=== PATIENT | female | born 1990 | race African-American/Black ===

== ENCOUNTER 2018-04-13 16:41 | Emergency (ER) | payer OTHER ==
[~2018-04-13] VITALS: Ht 160 cm; Wt 59.0 kg
[~2018-04-13 16:41] MED LIST: IBUPROFEN 600600 M1 PO; NORFLEX100 MG PO; PRILOSEC 20 MG20 MG PO; XANAX1 MG PO
[2018-04-13] MEDS ORDERED: ULTRAM 50MG TAB50 MG PO (18:59)
[2018-04-13] MEDS ORDERED: ONDANSETRON HCL4 M2 PO (18:59)
[2018-04-13 19:20] VITALS: BP 111/59
== END 2018-04-13 19:22 | disposition home or self-care (01) ==
LOC: ER 16:41
DX: S05.11XA Contusion of eyeball and orbital tissues, right eye, initial encounter (principal); S09.90XA Unspecified injury of head, initial encounter; M54.6 Pain in thoracic spine; Y04.8XXA Assault by other bodily force, initial encounter; Y93.89 Activity, other specified; Y92.89 Other specified places as the place of occurrence of the external cause; Y99.8 Other external cause status

== ENCOUNTER 2018-08-30 11:10 | Emergency (ER) | payer OTHER ==
[~2018-08-30] VITALS: Ht 167.6 cm; Wt 74.8 kg
[~2018-08-30 11:10] MED LIST changes: +ONDANSETRON HCL4 M2 PO; +ULTRAM 50MG TAB50 MG PO
[2018-08-30 11:32] LABS: URINE BILIRUBIN NEGATIVE (Negative); URINE BLOOD NEGATIVE (Negative); URINE CLARITY CLEAR; URINE COLOR YELLOW; URINE GLUCOSE-RANDOM* NEGATIVE (Negative); URINE KETONES NEGATIVE (Negative); URINE LEUKOCYTES NEGATIVE (Negative); URINE NITRITE NEGATIVE (Negative); URINE PROTEIN (DIPSTICK) NEGATIVE (Negative); URINE UROBILINOGEN 0.2 E.U./dl (0.2-1.0)
[2018-08-30 12:05] LABS: ABSOLUTE NEUTROPHILS 8.9 thou/uL (1.4-8.2); BASOPHILS 0.5 % (0.0-2.0); EOSINOPHILS 0.3 % (0.0-3.0); HEMATOCRIT 36.4 % (37.0-47.0); HEMOGLOBIN 12.4 gm/dL (12.0-15.0); MCH 30.1 pg (26.0-34.0); MCHC 33.9 g/dL (28.0-37.0); MCV 88.6 fL (80.0-100.0); MONOCYTES 3.6 % (1.0-8.0); PLATELET COUNT 221 thou/uL (150-400); POLYS 77.6 % (36.0-66.0); RBC 4.11 mil/uL (4.20-5.00); WBC 11.5 thou/uL (4.0-11.0)
[2018-08-30 12:13] LABS: CALCIUM 8.9 mg/dL (8.5-10.1); CREATININE 0.7 mg/dL (0.6-1.0); POTASSIUM 4.1 mmol/L (3.5-5.1)
[2018-08-30 12:19] LABS: ALBUMIN 4.4 g/dL (3.4-5.0); TOTAL BILIRUBIN 0.6 mg/dL (<0.1-1.0); TOTAL PROTEIN 8.3 g/dL (6.4-8.2)
[2018-08-30] MEDS ORDERED: ONDANSETRON HCL4 M2 PO (14:19)
[2018-08-30] MEDS ORDERED: PRILOSEC 20 MG20 MG PO (14:19)
[2018-08-30 14:30] VITALS: BP 124/58
== END 2018-08-30 14:44 | disposition home or self-care (01) ==
LOC: ER 11:10
PROVIDERS: Emergency Medicine; Physician Assistant
DX: K21.9 Gastro-esophageal reflux disease without esophagitis (principal); R11.2 Nausea with vomiting, unspecified; F41.9 Anxiety disorder, unspecified; K58.9 Irritable bowel syndrome, unspecified; Z88.2 Allergy status to sulfonamides

== ENCOUNTER 2018-11-29 11:28 | Inpatient (IN) | payer OTHER ==
[~2018-11-29] VITALS: Ht 162.6 cm; Wt 63.5 kg
[2018-11-29 11:29] VITALS: BP 116/80
[2018-11-29 12:35] LABS: ABSOLUTE NEUTROPHILS 10.5 thou/uL (1.4-8.2); BASOPHILS 0.1 % (0.0-2.0); EOSINOPHILS 0.7 % (0.0-3.0); HEMATOCRIT 40.9 % (37.0-47.0); HEMOGLOBIN 13.3 gm/dL (12.0-15.0); MCHC 32.6 g/dL (28.0-37.0); MONOCYTES 4.6 % (1.0-8.0); POLYS 83.6 % (36.0-66.0); RBC 4.45 mil/uL (4.20-5.00); RDW 13.9 % (10.5-14.5); WBC 12.6 thou/uL (4.0-11.0)
[2018-11-29 12:50] LABS: ALBUMIN 4.6 g/dL (3.4-5.0); CALCIUM 9.4 mg/dL (8.5-10.1); CREATININE 0.8 mg/dL (0.6-1.0); POTASSIUM 3.6 mmol/L (3.5-5.1); TOTAL BILIRUBIN 0.2 mg/dL (<0.1-1.0); TOTAL PROTEIN 8.7 g/dL (6.4-8.2)
[2018-11-29 14:15] LABS: PLATELET COUNT 151 thou/uL (150-400)
[2018-11-29 17:23] LABS: URINE BILIRUBIN NEGATIVE (Negative); URINE BLOOD NEGATIVE (Negative); URINE CLARITY CLEAR; URINE COLOR YELLOW; URINE GLUCOSE-RANDOM* NEGATIVE (Negative); URINE KETONES 2+ (Negative); URINE LEUKOCYTES-REFLEX NEGATIVE (Negative); URINE NITRITE-REFLEX NEGATIVE (Negative); URINE PROTEIN (DIPSTICK) TRACE (Negative); URINE UROBILINOGEN 0.2 E.U./dl (0.2-1.0)
[2018-11-29 17:30] LABS: AMP/METHAMP Negative (Negative); BARBITURATES Negative (Negative); BENZODIAZEPINES POSITIVE (Negative); COCAINE Negative (Negative); METHADONE Negative (Negative); OPIATES Negative (Negative); PCP Negative (Negative)
[2018-11-29 18:49] VITALS: BP 142/56
[2018-11-29 21:13] VITALS: BP 122/75
[2018-11-30 03:08] VITALS: BP 156/92
[2018-11-30 05:10] LABS: HEMATOCRIT 35.7 % (37.0-47.0); HEMOGLOBIN 11.7 gm/dL (12.0-15.0); MCHC 32.7 g/dL (28.0-37.0); MCV 91.7 fL (80.0-100.0); RBC 3.89 mil/uL (4.20-5.00); RDW 14.1 % (10.5-14.5); WBC 6.9 thou/uL (4.0-11.0)
[2018-11-30 05:19] LABS: CALCIUM 8.7 mg/dL (8.5-10.1); CREATININE 0.8 mg/dL (0.6-1.0); POTASSIUM 3.5 mmol/L (3.5-5.1)
[2018-11-30 07:11] VITALS: BP 122/80
[2018-11-30 15:10] VITALS: BP 142/72
[2018-11-30 20:40] VITALS: BP 123/85
[2018-12-01 05:59] VITALS: BP 122/79
[2018-12-01 07:42] VITALS: BP 130/88
[2018-12-01 14:16] VITALS: BP 130/88
--- NOTE | 2018-12-02 17:06 | PATH ---
[facility] [address] [place] [address] PATHOLOGY RPT PROCEDURE Name: ERIC SPENCE Room #: 418-P DIS IN M.R.#: [id number] ������������������ Admission: 11/29/18 ������������������ Date of : 89 Discharge: 12/01/18 Report #: [id number] Path Case #: [id number] [facility] Accession Number: [id number] . 01 Material submitted: . stomach - BX GASTRITIS R/O H-PYLORI . 01 Clinical history: . Pre-OP DX: Nausea with vomiting, abdominal pain Post-OP DX: Mild gastritis, mild duodenitis . 02 Diagnosis: Gastric mucosa, gastritis rule out H. pylori, endoscopic biopsy; - Mild reactive gastropathy. - Negative for intestinal metaplasia or atrophy. - Negative for Helicobacter pylori (properly controlled immunohistochemical stain performed). (IUV:charla; 12/02/2018) MBEloise/12/02/2018 . 02 Electronically signed: . Francisca Dougherty MD, Pathologist NPI- [id number] . 01 Gross description: . Received in formalin labeled "Eric Spence, BX gastritis, rule out H. pylori," are 2 segments of gallegos soft tissue measuring 0.8 x 0.2 x 0.2 cm in aggregate dimensions and measuring 0.4 cm each in maximum dimension. The specimen is submitted entirely in cassette A1. (TSD; 12/01/2018) TOB/TOB . 02 Pathologist provided ICD-10: K31.9 . 02 CPT . 006847, T23871 Specimen Comment: A courtesy copy of this report has been sent to Specimen Comment: [phone]. Specimen Comment: Report sent to ,DR SOLIS / DR WATT Performed at: [address] [id number] MD Adrian Jorgensen MD Phone: [phone] Performed at: [address] [id number] [address] [address] PATHOLOGY RPT PROCEDURE Name: ERIC SPENCE Room #: 418-P DIS IN M.R.#: [id number] ������������������ Admission: 11/29/18 ������������������ Date of : [birth year] Discharge: 12/01/18 Report #: [id number] Path Case #: [id number] MD Francisca Dougherty MD Phone: [phone]
== END 2018-12-01 15:10 | disposition home or self-care (01) | DRG 392 ==
LOC: ER 11:28 → EROBS 17:05 → 4E 17:05 → 4S 20:32 → 4E 20:42 → ENTRNSPT 12-01 14:34 → EDTRNSPTSTS 12-01 14:42 → 4E 12-01 15:10
PROVIDERS: Obstetrics & Gynecology; Physician Assistant; ADMIT Internal Medicine
PROC: 05HY33Z Insertion of Infusion Device into Upper Vein, Percutaneous Approach (ICD-10-PCS; 2018-11-30)
PROC: 0DB68ZX Excision of Stomach, Via Natural or Artificial Opening Endoscopic, Diagnostic (ICD-10-PCS; principal; 2018-12-01)
DX: K29.70 Gastritis, unspecified, without bleeding (principal); K21.9 Gastro-esophageal reflux disease without esophagitis; N80.9 Endometriosis, unspecified; F41.9 Anxiety disorder, unspecified; Z88.2 Allergy status to sulfonamides; E86.0 Dehydration; N83.209 Unspecified ovarian cyst, unspecified side; F19.10 Other psychoactive substance abuse, uncomplicated; Z90.6 Acquired absence of other parts of urinary tract; Z79.899 Other long term (current) drug therapy
CPT/HCPCS: 10084; 27000; 62110; 62900

== ENCOUNTER 2019-04-06 12:01 | Emergency (ER) | payer OTHER ==
[~2019-04-06] VITALS: Ht 154.9 cm; Wt 77.1 kg
[2019-04-06 12:02] VITALS: BP 126/83
== END 2019-04-06 13:36 | disposition home or self-care (01) ==
LOC: ER 12:01
DX: F34.1 Dysthymic disorder (principal); R45.851 Suicidal ideations; F41.9 Anxiety disorder, unspecified; K21.9 Gastro-esophageal reflux disease without esophagitis; K58.9 Irritable bowel syndrome, unspecified; F31.9 Bipolar disorder, unspecified; Z88.2 Allergy status to sulfonamides

== ENCOUNTER 2019-04-27 15:44 | Emergency (ER) | payer OTHER ==
[~2019-04-27] VITALS: Ht 162.6 cm; Wt 72.6 kg
[2019-04-27 16:17] LABS: ABSOLUTE NEUTROPHILS 8.7 thou/uL (1.4-8.2); BASOPHILS 0.4 % (0.0-2.0); EOSINOPHILS 0.7 % (0.0-3.0); HEMATOCRIT 37.8 % (37.0-47.0); HEMOGLOBIN 12.2 gm/dL (12.0-15.0); LYMPHOCYTES 27.6 % (24.0-44.0); MCH 29.3 pg (26.0-34.0); MCHC 32.4 g/dL (28.0-37.0); MCV 90.4 fL (80.0-100.0); MONOCYTES 7.2 % (1.0-8.0); PLATELET COUNT 237 thou/uL (150-400); POLYS 64.1 % (36.0-66.0); RBC 4.18 mil/uL (4.20-5.00); RDW 13.5 % (10.5-14.5); WBC 13.7 thou/uL (4.0-11.0)
[2019-04-27 16:30] LABS: CALCIUM 9.5 mg/dL (8.5-10.1); CREATININE 0.9 mg/dL (0.6-1.0); POTASSIUM 3.2 mmol/L (3.5-5.1)
[2019-04-27 16:33] LABS: ALBUMIN 4.1 g/dL (3.4-5.0); TOTAL BILIRUBIN 0.2 mg/dL (<0.1-1.0); TOTAL PROTEIN 7.9 g/dL (6.4-8.2)
[2019-04-27 18:03] LABS: URINE BILIRUBIN NEGATIVE (Negative); URINE BLOOD NEGATIVE (Negative); URINE CLARITY SL CLOUDY; URINE COLOR YELLOW; URINE GLUCOSE-RANDOM* NEGATIVE (Negative); URINE KETONES 1+ (Negative); URINE LEUKOCYTES-REFLEX NEGATIVE (Negative); URINE NITRITE-REFLEX NEGATIVE (Negative); URINE PROTEIN (DIPSTICK) NEGATIVE (Negative); URINE UROBILINOGEN 0.2 E.U./dl (0.2-1.0)
[2019-04-27 18:10] LABS: AMP/METHAMP Negative (Negative); BARBITURATES POSITIVE (Negative); BENZODIAZEPINES Negative (Negative); COCAINE Negative (Negative); METHADONE Negative (Negative); OPIATES POSITIVE (Negative); PCP Negative (Negative)
[2019-04-27] MEDS ORDERED: ONDANSETRON HCL4 M2 PO (18:20)
[2019-04-27 18:31] VITALS: BP 130/72
--- NOTE | 2019-04-28 08:02 | EKG ---
[place] [address] [employer] [facility] [place] [address] ELECTROCARDIOGRAM REPORT Name: ERIC MARRERO [facility] [id number] Admission: 04/27/19 Attend Phys: Discharge: 04/27/19 Date of : [birth year] Report #: [id number] THIS REPORT FOR: //name// [facility] ED Test Date: 2019-04-27 Test Time: 16:51:41 Pat Name: ERIC MARRERO Department: Room: Gender: F Accounting Assistant: RONI : 1990 Requested By: Cathy Sandoval Order Number: [id number] MD: Ronny eVntura Measurements Intervals [place] Rate: 80 P: 51 NH: 159 QRS: 67 QRSD: 84 T: 42 QT: 379 QTc: 438 Interpretive Statements Sinus rhythm Normal tracing No previous ECG available for comparison Electronically Signed On 04-28-2019 8:02:47 CDT by Ronny Ventura [email or web address] <ELECTRONICALLY SIGNED> By: Ronny Ventura MD, [facility] 04/28/19 0802 165 1651 Ronny Ventura MD, FACC /EPI
== END 2019-04-27 18:32 | disposition home or self-care (01) ==
LOC: ER 15:44
PROVIDERS: Nurse Practitioner Family
DX: R11.2 Nausea with vomiting, unspecified (principal); R10.84 Generalized abdominal pain; R10.13 Epigastric pain; K21.9 Gastro-esophageal reflux disease without esophagitis; F41.9 Anxiety disorder, unspecified; F31.9 Bipolar disorder, unspecified; K58.9 Irritable bowel syndrome, unspecified; Z88.2 Allergy status to sulfonamides; Z88.8 Allergy status to other drugs, medicaments and biological substances

== ENCOUNTER 2019-04-28 | Inpatient (IN) | payer OTHER ==
[2019-04-28] VITALS (7 sets, daily range): BP systolic 115–138; BP diastolic 59–75
[~2019-04-28] VITALS: Ht 162.6 cm; Wt 77.1 kg
[2019-04-28 02:20] LABS: ABSOLUTE NEUTROPHILS 6.3 thou/uL (1.4-8.2); BASOPHILS 0.4 % (0.0-2.0); HEMATOCRIT 35.4 % (37.0-47.0); HEMOGLOBIN 11.6 gm/dL (12.0-15.0); LYMPHOCYTES 13.5 % (24.0-44.0); MCH 29.1 pg (26.0-34.0); MCHC 32.6 g/dL (28.0-37.0); MCV 89.3 fL (80.0-100.0); MONOCYTES 3.3 % (1.0-8.0); PLATELET COUNT 213 thou/uL (150-400); POLYS 82.8 % (36.0-66.0); RBC 3.97 mil/uL (4.20-5.00); RDW 13.1 % (10.5-14.5); WBC 7.6 thou/uL (4.0-11.0)
[2019-04-28 02:22] LABS: URINE BILIRUBIN NEGATIVE (Negative); URINE BLOOD NEGATIVE (Negative); URINE CLARITY CLEAR; URINE COLOR YELLOW; URINE GLUCOSE-RANDOM* NEGATIVE (Negative); URINE KETONES 3+ (Negative); URINE LEUKOCYTES NEGATIVE (Negative); URINE NITRITE NEGATIVE (Negative); URINE PROTEIN (DIPSTICK) NEGATIVE (Negative); URINE SPECIFIC GRAVITY 1.015 (1.005-1.035); URINE UROBILINOGEN 0.2 E.U./dl (0.2-1.0)
[2019-04-28 02:23] LABS: CALCIUM 8.5 mg/dL (8.5-10.1); CREATININE 0.7 mg/dL (0.6-1.0); POTASSIUM 3.8 mmol/L (3.5-5.1)
[2019-04-28 02:29] LABS: TOTAL BILIRUBIN 0.3 mg/dL (<0.1-1.0); TOTAL PROTEIN 7.7 g/dL (6.4-8.2)
--- NOTE | 2019-04-28 06:35 | NUR ---
ADMITTED FROM ER UNDER 'S CARE. ADMITTED WITH VOMITING. PT ADMITTED FOR M/S OBSERVATION. AXOX4. VERY IRRITABLE. PERSISTENT PAIN AND NAUSEA. CALLED RICHELLE CROSS VENDOR REPRESENTATIVES FOR ADDITIONAL ORDER. COMPAZINE WAS ORDERED. PT REFUSED COMPAZINE. NOTED. PT DOES HAVE NAUSEA WITH ACTUAL VOMITING. NO S/S ACUTE DISTRESS NOTED OR REPORTED AT THIS TIME. WILL CONT TO MONITOR FOR ANY CHANGES IN CONDITION.
--- NOTE | 2019-04-28 18:20 | NUR ---
PATIENT CONTINUED WITH DRY HEAVES THROUGHOUT THE DAY UNTIL TORADOL GIVEN THIS AFTERNOON. HEADACHE WAS COMPLETELY RESOLVED. HAVE MEDICATED Q4H WITH ZOFRAN AND FENTANYL, AND REGLAN AND ATIVAN Q6H. PATIENT VERY HAPPY AND FEELING MUCH BETTER THIS EVENING. TOOK A SHOWER AND STATED FELT BETTER AFTER THAT ALSO. CONTINUED IV FLUIDS FOR DEHYDRATION. VOIDED X 2. PATIENT STATES SHE THINKS SHE WILL BE READY TO GO HOME TOMORROW IF SHE KEEPS FEELING BETTER. TAKING IN VERY LITTLE ORALLY.
[2019-04-29 00:21] VITALS: BP 109/59
[2019-04-29 05:38] VITALS: BP 139/79
--- NOTE | 2019-04-29 06:40 | NUR ---
Pt had a rough night. N/V and pain was difficult to control. Pt was medicated per emar. New orders were gotten with little or no relief. bowel sounds hypoactive, nondistended. pt had bile vomit x3 overnight. fall prec was put inplace because pt was feeling dizziness with a headache. pt was educated and know to call for assistance. pt showered last night. pt stated that she was so nauseaous that she's having sob, sats was 99%. 2l of oxygen was placed for comfort.
[2019-04-29 07:57] VITALS: BP 141/68
[2019-04-29 09:57] LABS: CALCIUM 8.9 mg/dL (8.5-10.1); CREATININE 0.8 mg/dL (0.6-1.0); POTASSIUM 3.5 mmol/L (3.5-5.1)
[2019-04-29 19:18] VITALS: BP 132/85
--- NOTE | 2019-04-29 20:40 | NUR ---
ASSUMED CARE OF PATIENT AT 0715, PATIENT ALERT AND ORIENTED X 4. PATIENT UP WITH SBA. PATIENT C/O PAIN THIS AM, RECEVIED TORADOL IV X 1, WITH PARTIAL RELIEF. DR RICHARDS HERE THIS AM, RECEIVED ORDER FOR CONSULT/NEUROLOGY AND GI CONSULT. BOTH CALLED BY JODEE/ERMELINDA. NEUROLOGY SAW THE PATIENT, ORDERED VALPROATE A IVPB AND SOLU MEDROL IV. PATIENT WAS UPSET ABOUT DR ISRAEL BEDSIDE MANNERS, WANTED TO SPEAK TO THE LINE CONSTRUCTION SUPERINTENDENT. BRIGIDA/LINE CONSTRUCTION SUPERINTENDENT CAME TO SEE THE PATIENT. PATIENT ALOS CALLED DR RICHARDS IN REGARD TO CONSULTS ORDERED, EVEN THOUGH I TOLD HER I WAS GOING TO CALL HIM, SHE WAS UPSET BECAUSE HE TOLD HER STAT CONSULTS, BUT PUT ORDER IN FOR ROUTINE. THIS RN CALLED DR ROMO IN REGARD TO GI CONSULT, HE RETURNED CALL ABOUT 1700, AND STATED HE WILL SEE THE PATIENT TOMORROW, RECEIVED ORDER FOR ICE CHIP ONLY, NPO AFER MIDNIGHT, ALSO US OF ABDOMEN, WILL BE DONE TOMORROW. PATIENT IV RIGHT FOREARM WENT BAD, CALLED IV TEAM FOR NEW IV. PATIENT HAD SMALL AMTS OF EMEMSIS TODAY. WILL CONTINUE TO MONITOR.
--- NOTE | 2019-04-30 05:50 | NUR ---
PATIENT ALERT AND ORIENTED X4. UP WITH WALKER AND SBA. IVF INFUSING W/O COMPLICATION AFTER NEW IV WAS PLACED BY THE IV TEAM. PATIENT HAS BEEN NPO SINCE 2358 FOR AN ULTRASOUND OF THE ABDOMEN FOR INTRACTABLE N/V. SOME EMESIS DURING THE NIGHT. ONE TIME ORDER FOR TORADOL IV FOR PAIN WITH GOOD RESULTS. RESTING QUIETLY. WILL MONITOR.
[2019-04-30 07:13] VITALS: BP 142/83
[2019-04-30 15:39] VITALS: BP 139/90
[2019-04-30 19:26] VITALS: BP 128/80
--- NOTE | 2019-04-30 19:37 | NUR ---
Assumed patient care at 0715. Patient's vital signs have been stable. She has complained of nausea and vomiting but the only thing noted in her basin appeared to be approximately 1 tablespoon of clear "spit." Patient has called the nurses station several x's making a vomiting sound, when this nurse has went to the room to check on her, she had not vomited. She has complained of a "throbbing headache",and, "abdominal pain." She has been given Phenergan, Zofran, Ativan, and Fentanyl several times today (she keeps track of the time on her board and calls when she can have more). Patient is to be NPO after midnight for a EGD tomorrow. Patient has been on clear liquids today.
[2019-05-01 04:04] VITALS: BP 110/72
[2019-05-01 07:12] VITALS: BP 123/83
--- NOTE | 2019-05-01 07:54 | NUR ---
progress pt reports nausea and pain headache and stomachache rating head a 10 and stomachache a 6 to 8 taking 5 mcg fentanyl q4hrs ivp with some relief tried tylenol for headache with little effect, pt reported coughing up blood about 6 dime sized or smaller spots of ernesto blood noted on tissue, throat observed capillaries enlarged throat pink moist but no areas of active bleeding noted, no other episodes of emesis noted but ativan and zofran given throughout shift to control pain and nausea. pt also walking halls independently while fall risk, re educated frequently to call for assistance.plan to have egd this am hoping to dc home after.
[2019-05-01 10:56] LABS: ABSOLUTE NEUTROPHILS 3.6 thou/uL (1.4-8.2); BASOPHILS 0.6 % (0.0-2.0); EOSINOPHILS 0.1 % (0.0-3.0); HEMATOCRIT 30.7 % (37.0-47.0); HEMOGLOBIN 10.2 gm/dL (12.0-15.0); LYMPHOCYTES 47.9 % (24.0-44.0); MCH 30.1 pg (26.0-34.0); MCHC 33.3 g/dL (28.0-37.0); MCV 90.3 fL (80.0-100.0); MONOCYTES 7.9 % (1.0-8.0); PLATELET COUNT 191 thou/uL (150-400); POLYS 43.5 % (36.0-66.0); RDW 13.4 % (10.5-14.5); WBC 8.2 thou/uL (4.0-11.0)
[2019-05-01 11:09] LABS: CALCIUM 8.1 mg/dL (8.5-10.1); POTASSIUM 3.5 mmol/L (3.5-5.1)
[2019-05-01 11:17] LABS: CREATININE 0.9 mg/dL (0.6-1.0)
[2019-05-01 15:30] VITALS: BP 153/101
--- NOTE | 2019-05-01 16:28 | NUR ---
4DFRSLMIDLINE PLACED LUABASILIC. PLEASE SEE INSERTION NI FOR DETAILS
--- NOTE | 2019-05-01 18:11 | NUR ---
Assumed pt care at 7am.Assessment completed.vss.Pt was anxious and has several c/o about her care from day 1 of admission to hospital.Piv went bad at the beginning of shift and was removed by noc rn.Iv team called and midline placed prior to going to gi lab at noon.Pt returned to floor aroud 1430.C/o headache and nausea. Ativan,zofran and fentanyl ivp given prior to sending to mri. Pt reported several headache when returned from mri,Dr Rodgers notified and order received.Will continue to monitor.
[2019-05-01 19:50] VITALS: BP 118/64
--- NOTE | 2019-05-01 23:30 | NUR ---
PT LEFT AMA AT 2328HRS. ECHOCARDIOGRAPHY TECH LIVESTOCK SPECULATOR AND HOUSE SOUP NOTIFIED. IV ACCESS DC. PT SIGNED AMA PAPERWORK. PT WALKED OFF THE UNIT AT 2328HRS.
--- NOTE | 2019-05-02 12:41 | P ---
[facility] [place] [address] PROCEDURE REPORT Name: ERIC MARRERO Room #: 456-P [facility] IN M.R.#: [id number] Admission: 04/28/19 Attend Phys: Levi Rodgers MD Discharge: 05/02/19 Date of : [birth year] Report #: [id number] THIS REPORT FOR: //name// CC: TARUN physician/PCP Levi Rodgers MD DATE OF SERVICE: 05/01/2019 PROCEDURE PERFORMED: Upper endoscopy with biopsies. HISTORY OF PRESENT ILLNESS: The patient is a 28-year-old female with recurrent nausea and vomiting. She has been evaluated in the past for similar symptoms as well as abdominal pain. Previous upper endoscopy showed gastritis by my partner, Dr. Carver, in November of this year. The patient has had worse symptoms recently. She also has a chronic headache that Neurology is evaluating the patient for. She denies any dysphagia. Plan is for upper endoscopy. DESCRIPTION OF PROCEDURE: The risks and benefits of the procedure were explained to the patient, those risks including but not limited to bleeding, perforation and the risk of sedation. She understood these risks and gave informed consent. Sedation was given using propofol per anesthesia. Next, using a standard Olympus upper endoscope, the scope was placed in the patient's mouth and advanced under direct vision through the esophagus, stomach and into the second portion of the duodenum. The larynx was normal in appearance. The esophagus was normal throughout. The GE junction was normal. A moderate gastritis was noted in a small area in the fundus. Suspect this may be secondary to frequent vomiting. There was no evidence of food or liquid within her stomach. The gastric body was normal. There was a mild gastritis also noted in the antrum. Biopsies were obtained to rule out H. pylori. The pylorus was normal and patent. The duodenal bulb, first and second portion were all normal. Biopsies were also obtained of the duodenum to rule out the possibility of celiac sprue. Scope was then withdrawn and the procedure terminated. The patient tolerated the procedure well. IMPRESSION: 1. Gastritis. 2. Otherwise, normal upper endoscopy. RECOMMENDATIONS: 1. Await biopsy results. 2. Etiology of recurrent nausea and vomiting is unclear. The patient has had fairly extensive workup in the past. She has a possible history of gastroparesis, but no history of gastric emptying study done here at [facility]. Could consider this in the future; however, she is on IV Reglan at this time. She is scheduled for an MRI of the head next. [address] [address] PROCEDURE REPORT Name: ERIC MARRERO Room #: 456-P [facility] IN [facility].#: [id number] Admission: 04/28/19 Attend Phys: Levi Rodgers MD Discharge: 05/02/19 Date of : [birth year] Report #: [id number] Thank you for allowing me to participate in her care. <ELECTRONICALLY SIGNED> By: Rl Gonzales MD 05/02/19 1241 1339 2337 Rl Gonzales MD /nt
--- NOTE | 2019-05-03 15:07 | PATH ---
[facility] [address] [address] PATHOLOGY RPT PROCEDURE Name: ERIC SPENCE Room #: 456-P DIS IN M.R.#: [id number] Admission: 04/28/19 Date of : [birth year] Discharge: 05/02/19 Report #: [id number] Path Case #: [id number] [facility] Accession Number: [id number] . 01 Material submitted: . PART A: duodenum - BX DUODENUM PART B: stomach - BX GASTRITIS . 01 Clinical history: . Preop DX: nausea, vomiting Postop DX: gastritis A. R/O sprue B. R/O H. pylori . 02 Diagnosis: A. Small bowel mucosa, duodenum, endoscopic biopsy: - No diagnostic abnormalities present. - Negative for villous blunting or increase in intraepithelial lymphocytes. . B. Gastric mucosa, gastritis rule out H. pylori, endoscopic biopsy: - Mild reactive gastropathy. - Negative for intestinal metaplasia or atrophy. - Negative for Helicobacter pylori (properly controlled immunohistochemical stain performed). (IUV/db; 05/03/2019) LBQ 05/03/2019 1315 Local . 02 Electronically signed: . Francisca Dougherty MD, Pathologist NPI- [id number] . 01 Gross description: . A. Received in formalin labeled "Jordy Eric, Bx duodenum R/O sprue," are six segments of gallegos soft tissue measuring 0.8 x 0.5 x 0.1 cm in aggregate dimensions and ranging from 0.2 to 0.4 cm in maximum dimension. The specimen is submitted entirely in cassette A1. The smallest segments may not survive processing. . B. Received in formalin labeled "Eric Spence, Shoaib gastritis R/O H. pylori," are two segments of gallegos soft tissue measuring 0.4 x 0.2 x 0.1 cm and 0.5 x 0.3 x 0.1 cm in greatest dimensions. The specimen is submitted entirely in cassette B1. ([facility]; 05/02/2019) XVA/XVA 05/02/2019 0923 Local . 02 Pathologist provided ICD-10: [address] [address] PATHOLOGY RPT PROCEDURE Name: ERIC SPENCE Room #: 456-P DIS IN M.R.#: [id number] Admission: 04/28/19 Date of : [birth year] Discharge: 05/02/19 Report #: [id number] Path Case #: [id number] K31.9 . 02 CPT . 977763, 520010, [id number] Specimen Comment: A courtesy copy of this report has been sent to Specimen Comment: [phone], . Specimen Comment: Report sent to / DR RICHARDS Performed at: [address] [facility] [address], [place], [place] [id number] MD Adrian Jorgensen MD Phone: [phone] Performed at: [address] [facility] [address] [id number] MD Francisca Dougherty MD Phone: [phone]
== END 2019-05-02 | disposition left against medical advice (07) | DRG 392 ==
LOC: ER → EROBS 02:45 → 4W 02:45
PROVIDERS: Emergency Medicine; Nurse Practitioner Family; ADMIT Hospitalist
PROC: B54NZZA Ultrasonography of Left Upper Extremity Veins, Guidance (ICD-10-PCS; principal; 2019-05-01)
PROC: 05HY33Z Insertion of Infusion Device into Upper Vein, Percutaneous Approach (ICD-10-PCS; principal; 2019-05-01)
PROC: 0DB98ZX Excision of Duodenum, Via Natural or Artificial Opening Endoscopic, Diagnostic (ICD-10-PCS; principal; 2019-05-01)
PROC: 0DB68ZX Excision of Stomach, Via Natural or Artificial Opening Endoscopic, Diagnostic (ICD-10-PCS; principal; 2019-05-01)
DX: K29.70 Gastritis, unspecified, without bleeding (principal); K58.9 Irritable bowel syndrome, unspecified; K31.84 Gastroparesis; F41.9 Anxiety disorder, unspecified; F12.90 Cannabis use, unspecified, uncomplicated; Z53.29 Procedure and treatment not carried out because of patient's decision for other reasons; K21.9 Gastro-esophageal reflux disease without esophagitis; F31.9 Bipolar disorder, unspecified; F17.290 Nicotine dependence, other tobacco product, uncomplicated; Z88.2 Allergy status to sulfonamides; Z88.8 Allergy status to other drugs, medicaments and biological substances
CPT/HCPCS: 10040; 27000; 62110; 62900; 70005

== ENCOUNTER 2020-01-15 17:18 | Emergency (ER) | payer OTHER ==
[~2020-01-15] VITALS: Ht 162.6 cm; Wt 78.5 kg
[2020-01-15] MEDS ORDERED: PEPCID40 MG PO (18:01)
[2020-01-15] MEDS ORDERED: XANAX 0.5 MG0.5 M1 PO (18:01)
[2020-01-15 18:45] LABS: ABSOLUTE NEUTROPHILS 3.2 thou/uL (1.4-8.2); BASOPHILS 0.7 % (0.0-2.0); EOSINOPHILS 3.3 % (0.0-3.0); HEMATOCRIT 32.6 % (37.0-47.0); HEMOGLOBIN 11.4 gm/dL (12.0-15.0); LYMPHOCYTES 52.3 % (24.0-44.0); MCH 31.3 pg (26.0-34.0); MCHC 34.9 g/dL (28.0-37.0); MCV 89.7 fL (80.0-100.0); MONOCYTES 6.9 % (1.0-8.0); PLATELET COUNT 287 thou/uL (150-400); POLYS 36.8 % (36.0-66.0); RBC 3.64 mil/uL (4.20-5.00); RDW 13.8 % (10.5-14.5); WBC 8.6 thou/uL (4.0-11.0)
[2020-01-15 18:56] LABS: CALCIUM 8.4 mg/dL (8.5-10.1); CREATININE 0.8 mg/dL (0.6-1.0); POTASSIUM 3.6 mmol/L (3.5-5.1)
[2020-01-15 19:02] LABS: ALBUMIN 3.7 g/dL (3.4-5.0); TOTAL BILIRUBIN 0.3 mg/dL (0.2-1.0)
[2020-01-15] MEDS ORDERED: NORCO 5-325 TA1 EAC1 PO (19:40)
[2020-01-15 19:50] VITALS: BP 125/83
--- NOTE | 2020-01-16 08:09 | EKG ---
[facility] [place] [address] ELECTROCARDIOGRAM REPORT Name: ERIC MARRERO Room #: [facility]..#: [id number] Admission: 01/15/20 Attend Phys: Discharge: 01/15/20 Date of : [birth year] Report #: [id number] THIS REPORT FOR: cc: Ramón Santillan MD, Neal A. MD Lundgren,Ronny Sidhu MD [facility] THIS REPORT FOR: //name// [facility] ED Test Date: 2020-01-15 Test Time: 17:45:08 Pat Name: ERIC MARRERO Department: Room: Gender: F Hvac Project Engineer: ESHEETS : 1990 Requested By: Corey Jon Order Number: [id number] MD: Ronny Ventura Measurements Intervals [place] Rate: 83 P: 15 GA: 140 QRS: 52 QRSD: 84 T: 47 QT: 358 QTc: 421 Interpretive Statements Sinus rhythm Normal tracing Compared to ECG 04/27/2019 16:51:41 No significant changes Electronically Signed On 01-16-2020 8:09:00 CDT by Ronny Ventura [email or web address] <ELECTRONICALLY SIGNED> By: Ronny Ventura MD, [facility] 01/16/20 0809 1745 1745 Ronny Ventura MD, [facility] /EPI
== END 2020-01-15 19:53 | disposition home or self-care (01) ==
LOC: ER 17:18
PROVIDERS: Physician Assistant
DX: R07.89 Other chest pain (principal); R00.2 Palpitations; M79.661 Pain in right lower leg; M79.662 Pain in left lower leg; K21.9 Gastro-esophageal reflux disease without esophagitis; F31.9 Bipolar disorder, unspecified; F41.9 Anxiety disorder, unspecified; Z90.89 Acquired absence of other organs; Z79.899 Other long term (current) drug therapy; Z88.8 Allergy status to other drugs, medicaments and biological substances; Z88.2 Allergy status to sulfonamides

== ENCOUNTER 2020-03-01 19:39 | Emergency (ER) | payer OTHER ==
[~2020-03-01] VITALS: Ht 162.6 cm; Wt 74.8 kg
[~2020-03-01 19:39] MED LIST changes: +NORCO 5-325 TA1 EAC1 PO; +PEPCID40 MG PO; +XANAX 0.5 MG0.5 M1 PO
[2020-03-01 20:34] VITALS: BP 123/89
== END 2020-03-01 20:35 | disposition home or self-care (01) ==
LOC: LAB 19:39 → ER 19:39
DX: R50.9 Fever, unspecified (principal); Z20.828 Contact with and (suspected) exposure to other viral communicable diseases; K21.9 Gastro-esophageal reflux disease without esophagitis; Z88.2 Allergy status to sulfonamides; Z88.8 Allergy status to other drugs, medicaments and biological substances; Z79.899 Other long term (current) drug therapy; Z90.89 Acquired absence of other organs

== ENCOUNTER → 2020-11-12 | Outpatient (CLI) | payer OTHER | LOC: MRI 10-16 10:28 | PROVIDERS: ATTEND Family Medicine | DX: M25.561 Pain in right knee (principal) ==

== ENCOUNTER → 2020-11-27 | Outpatient (CLI) | payer OTHER | LOC: ULTRA 10:12 | PROVIDERS: ATTEND Obstetrics & Gynecology | DX: N83.02 Follicular cyst of left ovary (principal); N83.01 Follicular cyst of right ovary; N94.6 Dysmenorrhea, unspecified ==

== ENCOUNTER → 2021-01-10 | Outpatient (CLI) | payer OTHER | LOC: MRI 09:18 | PROVIDERS: ATTEND Orthopaedic Surgery Sports Medicine | DX: M47.26 Other spondylosis with radiculopathy, lumbar region (principal); R29.898 Other symptoms and signs involving the musculoskeletal system ==

== ENCOUNTER 2021-05-17 01:24 | Emergency (ER) | payer OTHER ==
[~2021-05-17] VITALS: Ht 162.6 cm; Wt 81.7 kg
[2021-05-17] MEDS ORDERED: PRILOSEC OTC20 MG PO (01:31)
[2021-05-17 01:57] LABS: ANION GAP 11 mmol/L (7-16); BUN 18 mg/dL (7-18); CALCIUM 8.9 mg/dL (8.5-10.1); CHLORIDE 106 mmol/L (98-107); CO2 24 mmol/L (21-32); CREATININE 0.8 mg/dL (0.6-1.0); GLUCOSE 89 mg/dL (74-106); POTASSIUM 3.4 mmol/L (3.5-5.1); SODIUM 141 mmol/L (136-145)
[2021-05-17 02:07] LABS: HEMATOCRIT 35.4 % (37.0-47.0); HEMOGLOBIN 11.6 gm/dL (12.0-15.0); MCH 29.6 pg (26.0-34.0); MCHC 32.8 g/dL (28.0-37.0); MCV 90.2 fL (80.0-100.0); PLATELET COUNT 294 thou/uL (150-400); RBC 3.92 mil/uL (4.20-5.00); RDW 13.4 % (10.5-14.5); WBC 8.9 thou/uL (4.0-11.0)
[2021-05-17 02:08] LABS: ALBUMIN 4.3 g/dL (3.4-5.0); LIPASE 68 U/L (73-393); SGOT 19 U/L (15-37); SGPT 24 U/L (14-59); TOTAL BILIRUBIN 0.4 mg/dL (0.2-1.0); TOTAL PROTEIN 8.3 g/dL (6.4-8.2)
[2021-05-17 02:43] LABS: ABSOLUTE NEUTROPHILS 2.6 thou/uL (1.4-8.2); ATYPICAL LYMPHS 6 %
[2021-05-17 04:40] VITALS: BP 127/82
--- NOTE | 2021-05-19 07:25 | EKG ---
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
== END 2021-05-17 04:42 | disposition left against medical advice (07) ==
LOC: ER 01:24
PROVIDERS: Emergency Medicine
DX: R07.89 Other chest pain (principal); F41.9 Anxiety disorder, unspecified; K21.9 Gastro-esophageal reflux disease without esophagitis; F32.9 Major depressive disorder, single episode, unspecified; Z98.890 Other specified postprocedural states; Z90.89 Acquired absence of other organs; Z79.899 Other long term (current) drug therapy; Z88.9 Allergy status to unspecified drugs, medicaments and biological substances; Z88.2 Allergy status to sulfonamides

== ENCOUNTER → 2021-05-20 | Outpatient (CLI) | payer OTHER ==
[~2021-05-20] MED LIST changes: +PRILOSEC OTC20 MG PO
== END ==
LOC: CAT 13:08
PROVIDERS: ATTEND Family Medicine
DX: J98.11 Atelectasis (principal); R07.9 Chest pain, unspecified; R79.89 Other specified abnormal findings of blood chemistry

== ENCOUNTER → 2021-06-23 | Outpatient (CLI) | payer OTHER | END | disposition home or self-care (01) | LOC: RAD 10:05 | PROVIDERS: ATTEND Physical Medicine & Rehabilitation Sports Medicine | DX: M25.551 Pain in right hip (principal); M25.851 Other specified joint disorders, right hip; Z98.890 Other specified postprocedural states; Z79.899 Other long term (current) drug therapy; Z88.2 Allergy status to sulfonamides; Z88.8 Allergy status to other drugs, medicaments and biological substances ==

== ENCOUNTER → 2021-08-27 | Outpatient (CLI) | payer OTHER | LOC: SJCVCIMAG 07:19 | PROVIDERS: ATTEND Internal Medicine | DX: R07.89 Other chest pain (principal); R00.2 Palpitations ==

== ENCOUNTER → 2021-09-09 | Outpatient (CLI) | payer OTHER ==
[~2021-09-09] MED LIST changes: +FLEXERIL PO; +METHOCARBAMOL750 MG PO; +ULTRAM50 MG PO
== END ==
LOC: LAB 08:43
PROVIDERS: ATTEND Student in an Organized Health Care Education/Training Program
DX: Z20.822 Contact with and (suspected) exposure to COVID-19 (principal)

== ENCOUNTER → 2021-09-10 | Day surgery (SDC) | payer OTHER ==
[~2021-09-10] VITALS: Ht 165.1 cm; Wt 88.0 kg
--- NOTE | ~2021-09-10 | O ---
[address] [address] OPERATIVE REPORT Name: ERIC MARRERO Room #: [facility].#: [id number] Admission: 09/10/21 Attend Phys: Addy Jose MD Discharge: Date of : [birth year] Report #: [id number] THIS REPORT FOR: cc: Ramón Santillan MD, Neal A. MD McCabe,Addy Griffin MD ~ DATE OF SERVICE: 09/10/2021 SERVICE: Orthopedics. FACILITY: [facility]. SURGEON: Addy Jose M.D. BILLIARD PLAYER: Екатерина Goodrich NP INDICATIONS FOR BILLIARD PLAYER: Extremity positioning, suture management, arthroscope management, assistance with repair. PREOPERATIVE DIAGNOSES: 1. Right hip pain. 2. Right hip femoral acetabular impingement. 3. Right hip labral tear. POSTOPERATIVE DIAGNOSES: 1. Right hip pain. 2. Right hip femoral acetabular impingement. 3. Right hip labral tear. PROCEDURE PERFORMED: 1. Right hip arthroscopic labral repair. 2. Right hip arthroscopic Cam osteochondroplasty. 3. Right hip arthroscopic subspine decompression. 4. Right hip lateral rim acetabuloplasty. COMPLICATIONS: None. DRAINS: None. SPECIMENS: None. ANESTHESIA: General. FINDINGS: 1. Fabiana CinchLock suture anchor x3 for labral repair. Overall, healthy-appearing labrum with a focal anterior labral tear and peripheral [address] [address] OPERATIVE REPORT Name: ERIC MARRERO Room #: [facility]#: [id number] Admission: 09/10/21 Attend Phys: Addy Jose MD Discharge: Date of : [birth year] Report #: [id number] chondral wave sign. 2. Lateral acetabular rim over coverage, treated with rim acetabuloplasty. 3. Prominent anterior inferior iliac spine, causing extraarticular subspine impingement, requiring additional capsular work with cautery and shaver and a subspine decompression with the bur. 4. 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 5. Capsulotomy closure with #2 Vicryl x5. 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 She was having pain affecting activities of daily living and had imaging consistent with femoral acetabular impingement as well as the physical examination confirming such. She had positive impingement findings and decreased internal rotation. X-rays showed an increased alpha angle consistent with Cam impingement, small crossover sign secondary to prominent anterior inferior iliac spine, Tonnis grade 0, indicating no arthritis. There was an MRI, which showed an anterior labral tear. She is indicated for surgical treatment. Risks, benefits, alternatives and indications were discussed with her in detail. Risks include but not limited to pain, bleeding, infection, injuring nerves or blood vessels, persistent pain despite surgical intervention, failure of any repairs, progression of preexisting chondral injury, stiffness, need for further surgery as well as complications related to anesthesia. Despite the risks, she wished to proceed. PROCEDURE IN DETAIL: After the right lower extremity was correctly identified in the preoperative holding area as the operative extremity, the patient was taken to the operating room where general anesthesia was induced without complication. She was padded appropriately. Prophylactic antibiotics were administered at appropriate time. C-arm was used to identify the extent of the Cam deformity and then the right hip was prepped and draped in standard sterile fashion. Timeout procedure performed. Traction was applied. Standard anterolateral viewing portal was established followed by anteromedial working portal. Diagnostic arthroscopy revealed the above findings. There was capsular erythema and synovitis present, which will be the indication for continuous passive motion machine used postoperatively in order to reduce the risk of scarring and adhesions as these can be reasons for reoperation in this patient population. Transverse capsulotomy was performed. The articular cartilage overall was healthy, particularly the femoral head as well as the acetabulum, although there was some mild fraying at the chondral labral junction anteriorly. The majority of her pathology was focal anterior labral tear that was full thickness. Then more peripherally, there was some increased mobility of the labrum. Ultimately, she did require 3 anchor repair [address] [address] OPERATIVE REPORT Name: ERIC MARRERO Room #: [facility] M.R.#: [id number] Admission: 09/10/21 Attend Phys: Addy Jose MD Discharge: Date of : [birth year] Report #: [id number] because she has lateral rim over coverage and resection of this excess bone did lead to some instability of the labrum, which required repair. Capsule was reflected off the dorsal side of the labrum, allowing access to the subspine region. The bur and shaver were used to dissect out the base of the anterior inferior iliac spine and subspine decompression was performed in standard fashion using x-ray for travel assistant. The bur was used to abrade the acetabular rim anteriorly and then the bur was used working laterally to resect the over coverage that was present laterally. After this was completed, we proceeded with labral repair. MongoSluice suture anchor x3 was utilized. The first two were placed in the anteromedial portal and good rastafarian of the anatomic position of the labrum was achieved. Scope was then placed anteriorly. Working portal was made laterally and a third anchor was placed laterally. Good stability of the labrum was achieved. At this point, traction was let down, hip was flexed up. Attention was turned towards the peripheral compartment. She had a Cam deformity that extended quite distal and so the transverse capsulotomy was extended down the neck in a T-fashion allowing access to the entire Cam deformity and then the bur was used to perform a Cam osteochondroplasty in standard fashion. The instruments were removed. C-arm was brought in and assessed the resection and was happy with the appearance of the Cam osteoplasty at this point. Instruments were placed back into the hip. The bony debris was lavaged out the hip and final debridement was performed and then the T-shaped capsulotomy was closed with total of #5 Vicryl sutures. Instruments were removed. Portal sites were closed. Sterile dressing was applied. The patient was awakened from anesthesia and taken to recovery room in stable condition. No complications. All counts were reported as correct. By: 2105 2142 Addy Jose MD /kathleen
[2021-09-10 08:04] VITALS: BP 126/82
[2021-09-10 11:17] VITALS: BP 126/82
== END | disposition home or self-care (01) ==
LOC: OR 06:07
PROVIDERS: ATTEND Orthopaedic Surgery Sports Medicine
DX: M25.551 Pain in right hip (principal); M25.851 Other specified joint disorders, right hip; S73.191A Other sprain of right hip, initial encounter; F41.9 Anxiety disorder, unspecified; K21.9 Gastro-esophageal reflux disease without esophagitis; Z98.890 Other specified postprocedural states; Z79.899 Other long term (current) drug therapy; Z20.822 Contact with and (suspected) exposure to COVID-19; X58.XXXA Exposure to other specified factors, initial encounter; Y93.89 Activity, other specified; Y92.89 Other specified places as the place of occurrence of the external cause; Y99.8 Other external cause status
CPT/HCPCS: 50010; 50101; 50386; 51320; 51538; 52001; 52282; 52304; 52313; 56524; 56527; 57092; 57103; 58273; 58274; 58557; 58558; 58559; 58561; 58562; 58563; 58564; 58608; 58638; 62110; 62900; 70005